=== PATIENT | male | born 2000 | race Caucasian/White ===

== ENCOUNTER 2025-07-22 12:07 | Inpatient (IN) | payer OTHER ==
[~2025-07-22] VITALS: Ht 170.2 cm; Wt 77.1 kg
[~2025-07-22 12:07] MED LIST: HEPARIN SODIUM,PORCINE 1,000 UNITS/ML VIAL ONE
[2025-07-22 15:40] VITALS: BP 132/89; PULSE 95; RESP 18; TEMP 98.8; O2SAT 95
[2025-07-22] MEDS ORDERED: DICLOFENAC SODIUM 1% 100 GM GEL [4GM] TP PRN (15:45)
[2025-07-22] MEDS ORDERED: DOCUSATE SODIUM 100 MG/10 ML LIQUID UDCUP JT PRN (15:45)
[2025-07-22] MEDS ORDERED: ACETAMINOPHEN 650 MG/20.3 ML SOLUTION UDCUP JT SCH (16:00)
[2025-07-22 18:00] VITALS: O2SAT 95
[2025-07-22 20:00] VITALS: BP 129/88; PULSE 104; RESP 18; TEMP 98.6; O2SAT 97
[2025-07-22] MEDS: -LIDODERM PATCH NOTE- MISC SCH (21:00)
[2025-07-22] MEDS: MELATONIN 5 MG TABLET PO SCH (21:11)
[2025-07-22] MEDS: APIXABAN 2.5 MG TABLET JT SCH (21:11)
[2025-07-22] MEDS: ACETAMINOPHEN 650 MG/20.3 ML SOLUTION UDCUP JT SCH (21:12)
[2025-07-22] MEDS: 0.9% SODIUM CHLORIDE 10 ML SYRINGE IVP SCH (21:14)
[2025-07-22] MEDS: ETHYL ALCOHOL 62% ANTISEPTIC NASAL SANITIZER 0.6 ML AMPUL NASAL SCH (21:50)
[2025-07-23] VITALS (10 sets, daily range): BP systolic 127–149; BP diastolic 83–98; PULSE 58–115; RESP 18–20; TEMP 97–99.1; O2SAT 95–100
[2025-07-23] MEDS: CHLORHEXIDINE GLUCONATE 2% TOWELETTE [2'S/6'S] TP SCH (00:23)
[2025-07-23] MEDS: ONDANSETRON HCL 4 MG/2 ML VIAL IVP ONE (03:10)
[2025-07-23] MEDS: LIDOCAINE 5% TRANSDERMAL PATCH TD PRN (06:26)
[2025-07-23 07:30] LABS: PLATELET COUNT (AUTO) 647 K/uL (150-450); RED BLOOD CELL COUNT(AUTO) 3.15 MIL/uL (4.50-5.90); RED CELL DISTRIBUTION WIDTH 15.4 % (11.5-14.5); WHITE BLOOD COUNT (AUTO) 12.9 K/uL (4.5-11.0)
[2025-07-23 07:49] LABS: ASPARTATE AMINOTRANSFERASE 39.0 U/L (15-37); CALCIUM, TOTAL 9.1 mg/dL (8.8-10.5); CREATININE 6.1 mg/dL (0.60-1.30); GLOMERULAR FILTR. RATE CALC 11.0 mL/min (>60); GLUCOSE,RANDOM 115.0 mg/dL (70-110); SODIUM SERUM 136.0 mmol/L (136-145); TOTAL PROTEIN, SERUM 7.9 g/dL (6.4-8.2); UREA NITROGEN, BLOOD 39.0 mg/dL (7-18)
[2025-07-23] MEDS: BUMETANIDE 0.25 MG/ML 4 ML VIAL IVP SCH (08:44)
[2025-07-23] MEDS: ASPIRIN 81 MG CHEWABLE TABLET JT SCH (08:45)
[2025-07-23] MEDS: LIDOCAINE 5% TRANSDERMAL PATCH TD SCH (08:45)
[2025-07-23] MEDS ORDERED: NALOXONE HCL 1 MG/ML 2 ML SYRINGE IVP PRN (12:15)
[2025-07-23] MEDS: FOLIC ACID/VIT B COMPLEX AND C TABLET PO SCH (15:00)
[2025-07-23] MEDS: MORPHINE SULFATE 15 MG IR TABLET PO PRN (16:01)
[2025-07-23] MEDS ORDERED: SODIUM CHLORIDE 0.9% 1,000 ML ONE ×2 (16:05)
[2025-07-23] MEDS: MORPHINE SULFATE 15 MG ER TABLET PO SCH (21:50)
[2025-07-23] MEDS: FAMOTIDINE 20 MG TABLET PO SCH (21:51)
[2025-07-23] MEDS: ONDANSETRON HCL 4 MG/2 ML VIAL IVP PRN (22:58)
[2025-07-24 00:20] VITALS: BP 150/96; PULSE 121; RESP 19; O2SAT 90
[2025-07-24 00:25] VITALS: O2SAT 92
[2025-07-24 00:30] VITALS: BP 125/87; PULSE 106; O2SAT 98
[2025-07-24 03:55] VITALS: BP 138/92; PULSE 94; RESP 18; TEMP 98.4; O2SAT 98
[2025-07-24 06:56] LABS: GLUCOMETER DEV NAME(LOC) 2WR.1D; GLUCOSE,POINT OF CARE 129 MG/DL (70-110)
[2025-07-24 07:29] LABS: CALCIUM, TOTAL 9.0 mg/dL (8.8-10.5); CREATININE 5.23 mg/dL (0.60-1.30); GLOMERULAR FILTR. RATE CALC 14.0 mL/min (>60); GLUCOSE,RANDOM 111.0 mg/dL (70-110); SODIUM SERUM 133.0 mmol/L (136-145); UREA NITROGEN, BLOOD 30.0 mg/dL (7-18)
[2025-07-24 07:32] LABS: PHOSPHORUS 5.5 mg/dL (2.5-4.9)
[2025-07-24 08:00] VITALS: BP 135/88; PULSE 101; RESP 19; TEMP 98.4; O2SAT 95
[2025-07-24] MEDS: GABAPENTIN 100 MG CAPSULE JT SCH (08:27)
[2025-07-24] MEDS: SODIUM ZIRCONIUM CYCLOSILICATE 10 GM POWDER PACKET PO ONE (11:24)
[2025-07-24 20:59] VITALS: BP 138/85; PULSE 120; RESP 19; TEMP 98.4; O2SAT 95
[2025-07-25] VITALS (16 sets, daily range): BP systolic 129–153; BP diastolic 76–98; PULSE 59–137; RESP 18–19; TEMP 97.9–99.1; O2SAT 91–97
[2025-07-25 09:32] LABS: CALCIUM, TOTAL 9.6 mg/dL (8.8-10.5); CREATININE 7.35 mg/dL (0.60-1.30); GLOMERULAR FILTR. RATE CALC 9.0 mL/min (>60); GLUCOSE,RANDOM 107.0 mg/dL (70-110); SODIUM SERUM 131.0 mmol/L (136-145); UREA NITROGEN, BLOOD 44.0 mg/dL (7-18)
[2025-07-25] MEDS ORDERED: HEPARIN SODIUM,PORCINE 1,000 UNITS/ML 10 ML VIAL ONE (15:59)
[2025-07-25] MEDS: HEPARIN SODIUM,PORCINE 1,000 UNITS/ML VIAL IVCATH ONE ×2 (20:25)
[2025-07-26] VITALS (7 sets, daily range): BP systolic 133–149; BP diastolic 83–95; PULSE 103–112; RESP 18; TEMP 98.2–99.1; O2SAT 95–100
[2025-07-26 11:11] LABS: PLATELET COUNT (AUTO) 548 K/uL (150-450); RED BLOOD CELL COUNT(AUTO) 3.02 MIL/uL (4.50-5.90); RED CELL DISTRIBUTION WIDTH 15.0 % (11.5-14.5); WHITE BLOOD COUNT (AUTO) 6.3 K/uL (4.5-11.0)
[2025-07-26 12:34] LABS: CALCIUM, TOTAL 9.2 mg/dL (8.8-10.5); CREATININE 5.27 mg/dL (0.60-1.30); GLOMERULAR FILTR. RATE CALC 14.0 mL/min (>60); GLUCOSE,RANDOM 104.0 mg/dL (70-110); SODIUM SERUM 133.0 mmol/L (136-145); UREA NITROGEN, BLOOD 23.0 mg/dL (7-18)
[2025-07-26] MEDS: MORPHINE SULFATE 15 MG ER TABLET PO SCH (15:55)
[2025-07-26] MEDS: ACETAMINOPHEN 325 MG TABLET PO SCH (15:55)
[2025-07-26 16:03] LABS: APPEARANCE,URINE CLEAR (CLEAR); GLUCOSE, URINE (UA) NEGATIVE (NEGATIVE); LEUKOCYTE ESTERASE ,URINE NEGATIVE (NEGATIVE); NITRATE,URINE NEGATIVE (NEGATIVE); OCCULT BLOOD,URINE SMALL (NEGATIVE); SPECIFIC GRAVITIY, URINE 1.006 (1.003-1.030)
[2025-07-27] VITALS (14 sets, daily range): BP systolic 139–166; BP diastolic 92–108; PULSE 100–119; RESP 18; TEMP 98–98.2; O2SAT 96–99
[2025-07-27] MEDS: ONDANSETRON 4 MG RAPDIS TABLET PO PRN (08:00)
[2025-07-27] MEDS ORDERED: HEPARIN SODIUM,PORCINE 1,000 UNITS/ML VIAL ONE (12:00)
[2025-07-28 08:00] VITALS: BP 134/98; PULSE 108; RESP 19; TEMP 99.1; O2SAT 98
[2025-07-28] MEDS: METOPROLOL TARTRATE 25 MG TABLET PO SCH (08:45)
[2025-07-28 20:00] VITALS: BP 149/91; PULSE 110; RESP 18; TEMP 99.3; O2SAT 97
[2025-07-28 20:06] VITALS: BP 149/91; PULSE 110; RESP 18; TEMP 99.3; O2SAT 97
[2025-07-28 20:48] VITALS: O2SAT 97
[2025-07-29 06:14] VITALS: TEMP 98
[2025-07-29 07:37] LABS: PLATELET COUNT (AUTO) 617 K/uL (150-450); RED BLOOD CELL COUNT(AUTO) 2.90 MIL/uL (4.50-5.90); RED CELL DISTRIBUTION WIDTH 14.4 % (11.5-14.5); WHITE BLOOD COUNT (AUTO) 6.0 K/uL (4.5-11.0)
[2025-07-29 07:50] LABS: CALCIUM, TOTAL 9.2 mg/dL (8.8-10.5); CREATININE 7.56 mg/dL (0.60-1.30); GLOMERULAR FILTR. RATE CALC 9.0 mL/min (>60); GLUCOSE,RANDOM 101.0 mg/dL (70-110); SODIUM SERUM 135.0 mmol/L (136-145); UREA NITROGEN, BLOOD 32.0 mg/dL (7-18)
[2025-07-29 07:51] LABS: % IRON SATURATION 25.5 % (30-44); IRON, SERUM 50.0 mcg/dL (50-175)
[2025-07-29 08:00] VITALS: BP 135/95; PULSE 91; RESP 19; TEMP 98.8; O2SAT 95
[2025-07-29 20:00] VITALS: BP 125/86; PULSE 101; RESP 18; TEMP 98.4; O2SAT 100
[2025-07-29] MEDS: TAMSULOSIN HCL 0.4 MG CAPSULE PO SCH (20:11)
[2025-07-30] VITALS (13 sets, daily range): BP systolic 136–151; BP diastolic 82–98; PULSE 82–104; RESP 17–18; TEMP 96.8–99.1; O2SAT 96–99
[2025-07-30] MEDS: HEPARIN SODIUM,PORCINE 1,000 UNITS/ML VIAL IVCATH PRN ×2 (19:19→19:20)
[2025-07-31 07:30] VITALS: BP 143/94; PULSE 85; RESP 19; TEMP 98.8; O2SAT 99
[2025-07-31 07:48] LABS: PLATELET COUNT (AUTO) 726 K/uL (150-450); RED BLOOD CELL COUNT(AUTO) 3.12 MIL/uL (4.50-5.90); RED CELL DISTRIBUTION WIDTH 14.8 % (11.5-14.5); WHITE BLOOD COUNT (AUTO) 5.8 K/uL (4.5-11.0)
[2025-07-31 07:53] LABS: CALCIUM, TOTAL 9.0 mg/dL (8.8-10.5); CREATININE 6.03 mg/dL (0.60-1.30); GLOMERULAR FILTR. RATE CALC 12.0 mL/min (>60); GLUCOSE,RANDOM 106.0 mg/dL (70-110); SODIUM SERUM 136.0 mmol/L (136-145); UREA NITROGEN, BLOOD 24.0 mg/dL (7-18)
[2025-07-31 09:11] VITALS: BP 136/82; PULSE 100; RESP 18; TEMP 98.6; O2SAT 99
[2025-07-31] MEDS ORDERED: OxyCODONE HCL 5 MG IR TABLET PO PRN (11:00)
[2025-07-31 16:30] VITALS: BP 108/66; PULSE 94; RESP 18; TEMP 98.2; O2SAT 98
[2025-07-31] MEDS: OxyCODONE HCL 10 MG ER TABLET PO SCH (16:30)
[2025-07-31 21:04] VITALS: BP 120/78; PULSE 93; RESP 18; TEMP 98.2; O2SAT 99
[2025-08-01] VITALS (13 sets, daily range): BP systolic 119–148; BP diastolic 77–92; PULSE 80–105; RESP 18; TEMP 98.2–98.6; O2SAT 97–99
[2025-08-01] MEDS ORDERED: SODIUM CHLORIDE 0.9% 2,000 ML ONE (18:42)
[2025-08-02 04:46] VITALS: O2SAT 99
[2025-08-02 08:00] VITALS: BP 136/92; PULSE 90; RESP 18; TEMP 98.4; O2SAT 99
[2025-08-02] MEDS ORDERED: HEPARIN SODIUM,PORCINE 1,000 UNITS/ML VIAL IVP ONE (11:48)
[2025-08-02 16:41] VITALS: BP 125/72; PULSE 93; RESP 18; O2SAT 98
[2025-08-02 20:00] VITALS: BP 112/70; PULSE 91; RESP 18; TEMP 98.8; O2SAT 95
[2025-08-03] VITALS (12 sets, daily range): BP systolic 108–134; BP diastolic 66–85; PULSE 91–123; RESP 16–18; TEMP 98–99.9; O2SAT 97–100
[2025-08-03] MEDS: EPOETIN ALFA 10,000 UNITS/ML VIAL SQ SCH (09:42)
[2025-08-03] MEDS: PHENAZOPYRIDINE HCL 100 MG TABLET PO ONE (10:16)
[2025-08-03 11:43] LABS: APPEARANCE,URINE HAZY (CLEAR); GLUCOSE, URINE (UA) NEGATIVE (NEGATIVE); LEUKOCYTE ESTERASE ,URINE LARGE (NEGATIVE); NITRATE,URINE NEGATIVE (NEGATIVE); OCCULT BLOOD,URINE LARGE (NEGATIVE); SPECIFIC GRAVITIY, URINE 1.009 (1.003-1.030)
[2025-08-03 11:56] LABS: SULFOSALICYLIC ACID,URINE 3+ (Negative)
[2025-08-03 11:58] LABS: SQUAMOUS EPITHELIAL CELL,UR Rare /LPF (None Seen)
[2025-08-03] MEDS ORDERED: SODIUM CHLORIDE 0.9% 250 ML IV ONE (13:16)
[2025-08-03 13:20] LABS: RED BLOOD CELL COUNT(AUTO) 3.20 MIL/uL (4.50-5.90); RED CELL DISTRIBUTION WIDTH 14.2 % (11.5-14.5); WHITE BLOOD COUNT (AUTO) 10.6 K/uL (4.5-11.0)
[2025-08-03 13:26] LABS: PLATELET COUNT (AUTO) 762 K/uL (150-450)
[2025-08-03 13:32] LABS: CALCIUM, TOTAL 9.5 mg/dL (8.8-10.5); CREATININE 7.97 mg/dL (0.60-1.30); GLOMERULAR FILTR. RATE CALC 8.0 mL/min (>60); GLUCOSE,RANDOM 92.0 mg/dL (70-110); SODIUM SERUM 134.0 mmol/L (136-145); UREA NITROGEN, BLOOD 33.0 mg/dL (7-18)
[2025-08-03] MEDS: CefTRIAXone 1 GM/DEXTROSE 50 ML IV SCH (13:39)
[2025-08-03] MEDS ORDERED: SODIUM CHLORIDE 0.9% 2,000 ML ONE (16:05)
[2025-08-03] MEDS: PHENAZOPYRIDINE HCL 100 MG TABLET PO SCH (16:06)
[2025-08-03] MEDS: HEPARIN SODIUM,PORCINE 1,000 UNITS/ML VIAL IVCATH ONE ×2 (21:03)
[2025-08-04 08:00] VITALS: BP 123/75; PULSE 89; RESP 19; TEMP 98.2; O2SAT 96
[2025-08-04] MEDS: APIXABAN 2.5 MG TABLET JT SCH (09:48)
[2025-08-04 15:30] VITALS: BP 115/66; PULSE 84; RESP 19
[2025-08-04 20:47] VITALS: BP 113/79; PULSE 87; RESP 18; TEMP 98.1; O2SAT 100
[2025-08-04 23:39] VITALS: O2SAT 100
[2025-08-05 08:00] VITALS: BP 128/85; PULSE 86; RESP 18; TEMP 98.6; O2SAT 96
[2025-08-05] MEDS ORDERED: HEPARIN SODIUM,PORCINE 1,000 UNITS/ML VIAL IVP ONE (08:03)
[2025-08-05 09:19] LABS: PLATELET COUNT (AUTO) 634 K/uL (150-450); RED BLOOD CELL COUNT(AUTO) 2.88 MIL/uL (4.50-5.90); RED CELL DISTRIBUTION WIDTH 14.1 % (11.5-14.5); WHITE BLOOD COUNT (AUTO) 7.2 K/uL (4.5-11.0)
[2025-08-05 09:24] LABS: CALCIUM, TOTAL 9.0 mg/dL (8.8-10.5); CREATININE 7.39 mg/dL (0.60-1.30); GLOMERULAR FILTR. RATE CALC 9.0 mL/min (>60); GLUCOSE,RANDOM 108.0 mg/dL (70-110); SODIUM SERUM 136.0 mmol/L (136-145); UREA NITROGEN, BLOOD 27.0 mg/dL (7-18)
[2025-08-05 15:56] VITALS: BP 115/77; PULSE 92; RESP 18; TEMP 98.4; O2SAT 95
[2025-08-05] MEDS: SENNOSIDES 8.8 MG/5 ML SYRUP UDCUP JT PRN (17:05)
[2025-08-05 20:08] VITALS: BP 134/84; PULSE 88; RESP 18; TEMP 98.4; O2SAT 99
[2025-08-06] MEDS: BISACODYL 10 MG RECTAL RECTAL SUPPOSITORY PR PRN (04:25)
[2025-08-06 09:00] VITALS: BP 120/76; PULSE 90; RESP 18; TEMP 98.4; O2SAT 96; O2SAT 99
[2025-08-06] MEDS ORDERED: DOCU50LI40 JT (11:00)
[2025-08-06] MEDS ORDERED: GABA-1216 JT (11:00)
[2025-08-06] MEDS ORDERED: METO25 PO (11:00)
[2025-08-06] MEDS ORDERED: CLON0.1T2 JT (11:00)
[2025-08-06] MEDS ORDERED: SENN8.8S31 JT (11:00)
[2025-08-06] MEDS ORDERED: AMLO-258 JT (11:00)
[2025-08-06] MEDS ORDERED: ACET-3862 PO (11:00)
[2025-08-06] MEDS ORDERED: FOLI0.8T54 PO (11:00)
[2025-08-06] MEDS ORDERED: OXYC10TA59 PO (11:00)
[2025-08-06] MEDS ORDERED: APIX2.5T JT (11:00)
[2025-08-06] MEDS ORDERED: NALO4SPR NASAL (11:00)
[2025-08-06] MEDS ORDERED: FAMO20 PO (11:00)
[2025-08-06] MEDS ORDERED: ONDA-243 PO (11:00)
[2025-08-06] MEDS ORDERED: ASPI-1450 JT (11:00)
[2025-08-06] MEDS ORDERED: TAMS0.4C94 PO (11:00)
[2025-08-06 16:16] VITALS: BP 117/76; PULSE 81; RESP 18; TEMP 98.2; O2SAT 98
[2025-08-06 20:10] VITALS: BP 127/74; PULSE 81; RESP 18; TEMP 98.1; O2SAT 100
[2025-08-06 23:20] VITALS: O2SAT 100
[2025-08-07] VITALS (12 sets, daily range): BP systolic 113–128; BP diastolic 61–80; PULSE 77–99; RESP 18; TEMP 97.9–98.8; O2SAT 98–100
[2025-08-07] MEDS ORDERED: SODIUM CHLORIDE 0.9% 1,000 ML ONE ×2 (05:17→05:18)
[2025-08-07] MEDS: HEPARIN SODIUM,PORCINE 1,000 UNITS/ML VIAL IVCATH ONE ×2 (09:57)
[2025-08-07] MEDS ORDERED: HEPARIN SODIUM,PORCINE 1,000 UNITS/ML VIAL ONE (11:00)
== END 2025-08-07 19:39 | disposition home or self-care (01) | DRG 371 ==
LOC: 2WR 14:14
PROVIDERS: ADMIT Physical Medicine & Rehabilitation; ATTEND Physical Medicine & Rehabilitation
PROC: 5A1D70Z Performance of Urinary Filtration, Intermittent, Less than 6 Hours Per Day (ICD-10-PCS; 2025-07-25)
PROC: 5A1D70Z Performance of Urinary Filtration, Intermittent, Less than 6 Hours Per Day (ICD-10-PCS; principal; 2025-07-27)
PROC: 5A1D70Z Performance of Urinary Filtration, Intermittent, Less than 6 Hours Per Day (ICD-10-PCS; 2025-07-30)
PROC: 5A1D70Z Performance of Urinary Filtration, Intermittent, Less than 6 Hours Per Day (ICD-10-PCS; 2025-08-01)
PROC: 5A1D70Z Performance of Urinary Filtration, Intermittent, Less than 6 Hours Per Day (ICD-10-PCS; 2025-08-03)
PROC: 5A1D70Z Performance of Urinary Filtration, Intermittent, Less than 6 Hours Per Day (ICD-10-PCS; 2025-08-07)
DX: K68.3 Retroperitoneal hematoma (principal); J18.9 Pneumonia, unspecified organism; N17.0 Acute kidney failure with tubular necrosis; N18.6 End stage renal disease; J96.91 Respiratory failure, unspecified with hypoxia; I82.413 Acute embolism and thrombosis of femoral vein, bilateral; E46 Unspecified protein-calorie malnutrition; I12.0 Hypertensive chronic kidney disease with stage 5 chronic kidney disease or end stage renal disease; N13.6 Pyonephrosis; Z99.2 Dependence on renal dialysis; F11.20 Opioid dependence, uncomplicated; D64.9 Anemia, unspecified; Z95.828 Presence of other vascular implants and grafts; F32.9 Major depressive disorder, single episode, unspecified; D68.59 Other primary thrombophilia; N28.0 Ischemia and infarction of kidney; Z48.816 Encounter for surgical aftercare following surgery on the genitourinary system; E83.39 Other disorders of phosphorus metabolism; Z74.09 Other reduced mobility; E87.5 Hyperkalemia; F43.20 Adjustment disorder, unspecified; K31.84 Gastroparesis; N32.89 Other specified disorders of bladder; R62.7 Adult failure to thrive; Z53.20 Procedure and treatment not carried out because of patient's decision for unspecified reasons; Z74.1 Need for assistance with personal care; R26.9 Unspecified abnormalities of gait and mobility; R19.09 Other intra-abdominal and pelvic swelling, mass and lump; R53.81 Other malaise; R00.0 Tachycardia, unspecified; G89.29 Other chronic pain; R79.89 Other specified abnormal findings of blood chemistry; Z90.79 Acquired absence of other genital organ(s); Z85.47 Personal history of malignant neoplasm of testis; Z68.26 Body mass index [BMI] 26.0-26.9, adult; D75.838 Other thrombocytosis
CPT/HCPCS: 71045; 74018; 76770; 80048; 80053; 81001; 81002; 82728; 82962; 83540; 83550; 83735; 84100; 84145; 85025; 87077; 87081; 87086; 87186; 87340; 90935; 92507; 92523; 97110; 97112; 97116; 97163; 97167; 97530; 97535; 99366; J0696; J0885; J1171; J1644; J2405; J3490; J7030; J7050; 36415-L1; 36415-TC